=== PATIENT | male | born 1995 | race Caucasian/White ===

== ENCOUNTER 2019-03-11 07:34 | Day surgery (SDC) | payer OTHER ==
[2019-03-11] MEDS ORDERED: Ringers Lactate 1,000 ML IV ONE (07:43)
[2019-03-11] MEDS ORDERED: LIDOCAINE 1% MPF 5 ML VIAL ONE (08:35)
[2019-03-11] MEDS ORDERED: PROPOFOL 200 MG/20 ML VIAL IV ONE (08:35)
[2019-03-11] MEDS ORDERED: MIDAZOLAM HCL 2 MG/2 ML INJ ONE (08:36)
[2019-03-11 12:58] VITALS: BP 113/67; TEMP 97.2; O2SAT 99
--- NOTE | 2019-03-11 20:07 | OP ---
Surgeon: Dl Hutchinson MD Procedure To Be Performed: Esophagogastroduodenoscopy. Performing Physician: Dl Hutchinson MD. Indications For Procedure: Epigastric pain, nausea, change in bowel habits, GERD. Plan For Anesthesia: Monitored anesthesia care. Complexity: Average. Technique: After obtaining informed consent from the patient and explaining risks and complications which include, but are not limited to bleeding, infection, perforation, and anesthesia complication, patient was placed in the left lateral position and sedation was given. From then on the scope was a dvanced through the mouth and carefully guided up until the 3rd portion of the duodenum. After the c ompletion of examination, scope and equipment were withdrawn and procedure terminated in a safe ayo r. Findings: Esophagus. In the entire esophagus mild granularity was seen with some evidence of trache alization. Multiple biopsies taken from the mid esophagus. In the distal esophagus, there was evide nce of LA grade B esophagitis. Biopsies taken. A small hiatal hernia was seen. Stomach; mild patch y erythema seen in the body and antrum, biopsies taken. Duodenum; mild duodenitis seen in the bulb. The second and third portion appeared normal. Small bowel biopsies taken to rule out celiac disease . Complications: None. Tolerance To Anesthesia: Excellent. Postoperative Diagnoses: Esophagitis, hiatal hernia, gastritis, duodenitis. Plan: 1.Await pathology results. 2.Follow up in the clinic. 3.Oral PPI like Protonix once a day. 4.Ultrasound of the abdomen if not done. 5.Colonoscopy due to lower GI symptoms. US/MODL Voice ID: [id number] Report ID: [id number]
== END 2019-03-11 10:30 | disposition home or self-care (01) ==
LOC: OR 07:34
PROVIDERS: ATTEND Internal Medicine Gastroenterology
PROC: 0DB88ZX Excision of Small Intestine, Via Natural or Artificial Opening Endoscopic, Diagnostic (ICD-10-PCS; 2019-03-11)
PROC: 0DB68ZX Excision of Stomach, Via Natural or Artificial Opening Endoscopic, Diagnostic (ICD-10-PCS; 2019-03-11)
PROC: 0DB28ZX Excision of Middle Esophagus, Via Natural or Artificial Opening Endoscopic, Diagnostic (ICD-10-PCS; 2019-03-11)
PROC: 0DB38ZX Excision of Lower Esophagus, Via Natural or Artificial Opening Endoscopic, Diagnostic (ICD-10-PCS; principal; 2019-03-11 08:30)
DX: K21.0 Gastro-esophageal reflux disease with esophagitis (principal); K29.50 Unspecified chronic gastritis without bleeding; K29.80 Duodenitis without bleeding; K44.9 Diaphragmatic hernia without obstruction or gangrene; I10 Essential (primary) hypertension; F17.220 Nicotine dependence, chewing tobacco, uncomplicated; Z80.42 Family history of malignant neoplasm of prostate; Z82.49 Family history of ischemic heart disease and other diseases of the circulatory system
CPT/HCPCS: 88312 ×2; 88305; 43239; J2704; J2250; J7120

== ENCOUNTER 2019-05-16 06:30 | Day surgery (SDC) | payer OTHER ==
--- OUTSIDE RECORDS SUMMARY | 2019-05-16 06:32 | XMS REPORT ---
:1995 Author Organization e[employer] Care Team Providers Name Role Phone Cheema, [facility] Provider Role Unavailable Allergies, Adverse Reactions, Alerts Substance Reaction Event Type N.K.D.A. Info Not Available Non Drug Allergy Problems Problem Type Condition Code Onset Dates Condition Status Problem Hypertriglyceridemia E78.1 Active Problem Blood pressure elevated without R03.0 Active history of HTN Problem Chewing tobacco use Z72.0 Active Problem Insomnia, unspecified type G47.00 Active Problem Constipation, unspecified K59.00 Active constipation type Problem Daytime somnolence R40.0 Active Problem Anxiety F41.9 Active Problem Stress F43.9 Active Problem Adult BMI 30.0-30.9 kg/sq m Z68.30 Active Problem HTN, goal below 140/90 I10 Active Assessment Anxiety F41.9 Active Assessment Insomnia, unspecified type G47.00 Active Assessment Adult BMI 30.0-30.9 kg/sq m Z68.30 Active Assessment Generalized abdominal pain R10.84 Active Assessment HTN, goal below 140/90 I10 Active Assessment BRBPR (bright red blood per rectum) K62.5 Active Assessment Constipation, unspecified K59.00 Active constipation type Problem Skin infection L08.9 Active Medications Medication Code System Code Instructions Start End Date Status Dosage Date Lisinopril ND 94360890252 10 MG Orally Once Active 1 tablet a day ProAir HFA [facility] [id number] 108 (90 Base) Jul 24, Active 2 puffs as MCG/ACT 2019 needed Inhalation every 6 hrs PRN SHortness of breath, COugh and Wheezing Lisinopril NDC 28061806453 10 MG Orally Once Active 1 tablet a day Results No Known Results Summary Purpose eClinicalWorks Submission
[2019-05-16] MEDS ORDERED: Ringers Lactate 1,000 ML IV ONE (06:48)
[2019-05-16 07:05] VITALS: O2SAT 98
[2019-05-16] MEDS ORDERED: MIDAZOLAM HCL 2 MG/2 ML INJ ONE (07:24)
[2019-05-16] MEDS ORDERED: propofoL 200 MG/20 ML VIAL IV ONE (07:25)
[2019-05-16] MEDS ORDERED: LIDOCAINE 1% MPF 5 ML VIAL ONE (07:25)
[2019-05-16 09:08] VITALS: BP 115/74; TEMP 98
--- NOTE | 2019-05-16 22:33 | OP ---
Surgeon: Dl Hutchinson MD Procedure Performed: Colonoscopy. Indication For Procedure: Chronic diarrhea, abdominal pain. Plan For Anesthesia: Monitored anesthesia care. Complexity: Average. Technique: After obtaining informed consent from the patient and explaining risks and complications which include, but are not limited to bleeding, infection, perforation, and anesthesia complications, the patient was placed in the left lateral position and sedation was given. From then on, a digital rectal exam was performed. Scope inserted into the rectum and carefully guided up till the terminal ileum, then gradually withdrawn while carefully examining the colonic mucosa. The cecum was identif ied by the appendiceal orifice. The ileocecal valve and terminal ileum. Quality of prep was good. Scope withdrawal time was 9 minutes. Findings: From the rectum to the cecum, the colonic mucosa appeared normal without any evidence of u lceration or inflammation. Random biopsies were taken from all segments in a single bottle to rule o ut microscopic colitis. The terminal ileum appeared normal. Retroflexion revealed grade 1 internal hemorrhoids. Complications: None. Tolerance To Anesthesia: Excellent. Postoperative Diagnosis: Normal colonoscopy. Plan: 1.Await pathology results. 2.Follow up in the GI clinic in 2 weeks. 3.Proceed with small bowel follow-through and capsule endoscopy as the last step to rule out Crohn's. Otherwise, the diagnosis would favor IBS. US/MODL Voice ID: [id number] Report ID: [id number]
== END 2019-05-16 09:06 | disposition home or self-care (01) ==
LOC: OR 06:30
PROVIDERS: ATTEND Internal Medicine Gastroenterology
PROC: 0DBE8ZX Excision of Large Intestine, Via Natural or Artificial Opening Endoscopic, Diagnostic (ICD-10-PCS; principal; 2019-05-16 07:30)
DX: R19.7 Diarrhea, unspecified (principal); R10.9 Unspecified abdominal pain; K92.1 Melena; R19.4 Change in bowel habit; K64.8 Other hemorrhoids; K21.0 Gastro-esophageal reflux disease with esophagitis; R63.0 Anorexia; I10 Essential (primary) hypertension
CPT/HCPCS: 45380; 88305; J2704; J2250; J7120